=== PATIENT | male | born 1995 | race Caucasian/White ===

== ENCOUNTER 2023-01-17 20:50 | Emergency (ER) | payer SELFPAY ==
[2023-01-17 21:07] VITALS: BP 128/79; PULSE 81; RESP 18; TEMP 98.2; BMI 33.6
[2023-01-17] MEDS ORDERED: ACETAMINOPHEN 325 MG TABLET (FP) PO ONE (21:45)
[2023-01-17] MEDS ORDERED: ACETAMINOPHEN 325 MG TABLET (FP) ONE (21:56)
[2023-01-17 22:02] LABS: URINE APPEARANCE CLEAR; URINE BILIRUBIN NEGATIVE (NEGATIVE); URINE COLOR YELLOW; URINE GLUCOSE (UA) NEGATIVE (NEGATIVE); URINE KETONE NEGATIVE (NEGATIVE); URINE LEUK ESTERASE NEGATIVE (NEGATIVE); URINE NITRITE NEGATIVE (NEGATIVE); URINE PROTEIN NEGATIVE (NEGATIVE); URINE UROBILINOGEN 0.2 mg/dL (0.2-1.0)
[2023-01-17 22:38] LABS: BASO % 0.4 % (0-2.0); HEMOGLOBIN 16.2 GM/dL (11.7-16.9); LYMPH % 31.9 % (8-40); MCH 29.2 pg (25.7-33.7); MCHC 34.4 g/dl (32.0-35.9); MEAN CELL VOLUME 84.9 fl (80-96); MEAN PLT VOLUME 6.7 fl (7.5-11.1); MONO % 6.9 % (3.8-10.2); NEUT % 58.8 % (42.8-82.8); PLATELET COUNT 303 10^3/uL (134-434); RBC 5.54 M/mm3 (4.00-5.60); RDW 12.8 % (11.9-15.9); WHITE BLOOD COUNT 7.9 K/mm3 (4.0-10.0)
[2023-01-17 23:05] LABS: POTASSIUM 3.9 mmol/L (3.5-5.1)
[2023-01-17 23:07] LABS: ALBUMIN 4.3 g/dl (3.4-5.0)
[2023-01-17 23:10] LABS: CREATININE 0.6 mg/dL (0.55-1.3)
[2023-01-17 23:12] LABS: BILIRUBIN,TOTAL 0.6 mg/dL (0.2-1)
[2023-01-18] MEDS ORDERED: IBUPROFEN 600 MG TABLET (FP) PO ONE ×2 (00:20→00:23)
== END 2023-01-18 00:32 | disposition home or self-care (01) ==
LOC: JER 20:50
DX: R10.32 Left lower quadrant pain (principal); R30.9 Painful micturition, unspecified; M54.50 Low back pain, unspecified
CPT/HCPCS: 36415; 74177-TC; 80053; 81003; 85025; 87086; 87491; 87591; 99285-25; Q9967